=== PATIENT | male | born 1960 | race Caucasian/White ===

== ENCOUNTER 2023-05-26 06:21 | Day surgery (SDC) | payer BC, SELFPAY ==
[2023-05-24 08:42] LABS: Hematocrit 45.5 % (39.0-52.0); Hemoglobin 15.6 g/dL (13.0-18.0); Mean Corp Hgb Conc. 34.3 g/dL (33.0-37.0); Mean Corpuscular Hgb 29.7 pg (27.0-31.0); Mean Corpuscular Volume 86.7 fL (80.0-94.0); Mean Platelet Volume 12.6 fL (7.4-10.4); Platelet Count 182 10^3/uL (130-400); Red Blood Cell Count 5.25 10^6/uL (4.70-6.10); Red Cell Dist. Width 13.6 % (11.5-14.5); White Blood Cell Count 7.8 10^3/uL (4.8-10.8)
[2023-05-24 14:06] VITALS: BMI 29.8
[2023-05-26] VITALS (9 sets, daily range): BP systolic 123–150; BP diastolic 73–91; BMI 29.8
[2023-05-26] MEDS: NORMOSOL-R 1000 IV (08:36)
[2023-05-26] MEDS: TYLENOL 1000 MG PO (08:36)
[2023-05-26] MEDS: CELEBREX 200 MG PO (08:36)
== END 2023-05-26 14:07 | disposition home or self-care (01) ==
LOC: SDS 06:21
PROVIDERS: ATTENDING PHYSICIAN Orthopaedic Surgery; FAMILY PHYSICIAN Family Medicine
DX: S46.012A Strain of muscle(s) and tendon(s) of the rotator cuff of left shoulder, initial encounter (principal); S43.432A Superior glenoid labrum lesion of left shoulder, initial encounter; X58.XXXA Exposure to other specified factors, initial encounter
CPT/HCPCS: 29827; 29826; 85027; 93005; C1713